=== PATIENT | male | born 1955 | race Caucasian/White ===

== ENCOUNTER 2020-11-22 16:38 | Emergency (ER) | payer MEDICAID ==
[~2020-11-22] VITALS: Ht 193 cm; Wt 73.0 kg
[2020-11-22 16:41] VITALS: BP 155/90
== END 2020-11-22 18:08 ==
LOC: ED 18:02
DX: F10.120 Alcohol abuse with intoxication, uncomplicated (principal); Y90.0 Blood alcohol level of less than 20 mg/100 ml
CPT/HCPCS: 99283

== ENCOUNTER 2021-01-03 18:33 | Emergency (ER) | payer MEDICARE, MEDICAID ==
[~2021-01-03] VITALS: Ht 195.6 cm; Wt 81.0 kg
--- NOTE | 2021-01-03 19:04 | NUR ---
SANDIE FROM COUNTS INCLUDE 234 BEDS AT THE [facility] OUTSIDE TEMPORARY HOUSING UNIT OFF [address] STAFF WOULD LET HIM IN BECAUSE HE COULD NOT SAFELY WALK (ASSUMED ETOH INTOXICATION) VSS. A+OX 4 BUT OBVIOUSLY INTOXICATED
[2021-01-03] MEDS ORDERED: LORazepam 2 MG/ML, 1ML ONE ×2 (19:15→20:13)
--- NOTE | 2021-01-03 19:21 | NUR ---
PATIENT TOO UNSTABLE TO WALK ERP TO BEDSIDE PATIENT QUITE MOBILE AND RN WORRIED ABOUT FALL. MEDICATED WITH IM ATIVAN. WILL PUSH PO FLUIDS. THEN MTF
[2021-01-03] MEDS ORDERED: LORazepam 2 MG/ML, 1ML IM ONE (19:30)
--- NOTE | 2021-01-03 19:45 | NUR ---
with reassessment patient now calm/pleasant. Provided with food water and encouraged to take a nap
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
[2021-01-03] MEDS ORDERED: LORazepam 2 MG/ML, 1ML IM PRN (20:30)
--- NOTE | 2021-01-03 20:45 | NUR ---
WITH REASESSMENT PATIENT NOW CALM/RESTING VSS/WILL CONTINUE TO CLOSELY MONITOR
--- NOTE | 2021-01-03 21:08 | NUR ---
REPORT TO CHLOÉ WILSON
--- NOTE | 2021-01-03 21:09 | NUR ---
RECEIVED BS REPORT FROM KATIE BROOKS TO ASSUME CARE OF PT. AT THIS TIME. ALL SAFETY MEASURES OBSERVED.
--- NOTE | 2021-01-03 21:30 | NUR ---
LATE ENTRY: RESTRAINTS REMOVED AT THIS TIME. PT. RESTING ON GURNEY WITH EYES CLOSED AND NO DISTRESS NOTED. PULSE OX IN PLACE.
--- NOTE | 2021-01-03 22:30 | NUR ---
PT. CONTINUES TO REST ON GURNEY WITH EYES CLOSED. NO DISTRESS NOTED. PULSE OF IN PLACE. RESPIRATIONS VISIBLE AND NON-LABORED. ALL SAFETY MEASURES OBSERVED.
--- NOTE | 2021-01-04 00:06 | NUR ---
PT. CONTINUES RESTING ON GURNEY WITH EYES CLOSED. NO DISTRESS NOTED. REPIRATIONS VISIBLE AND NON-LABORED. PT. REMAINS ON 2L O2 VIA NC TO MAINTAIN O2 SAT >90%; PT. DROPS TO MID 80'S ON RA. PT. VERY DROWSY. ALL SAFETY MEASURES MAINTAINED.
--- NOTE | 2021-01-04 01:02 | NUR ---
BEDSIDE REPORT FROM CHLOÉ WILSON, PT CARE TRANSFERRED AT THIS TIME. PT CONTINUES TO REST WITH EYES CLOSED, LAYING SUPINE, EVEN AND UNLABORED RESPIRATIONS NOTED. VSS. PT NAD. RAILS ENGAGED, BED IN LOWEST, CALL LIGHT ON LAP, WCTM.
--- NOTE | 2021-01-04 02:09 | NUR ---
Break RN: patient resting in [facility]. REspirations even and unlabored. Patient not ready for d/c at this time.
--- NOTE | 2021-01-04 03:09 | NUR ---
PT UP STUMBLING OUT OF ROOM, REDIRECTED TO ROOM, PROVIDED SNACKS AND DRINKS FOR COMFORT, NAD, WCTM.
--- NOTE | 2021-01-04 03:48 | NUR ---
pt continually getting out of bed despite reorientation, provision of snacks and activities for entertaining, RN talking to patient and moving pt room closer to nursing station. pt unsteady on feet and unsafe to dc at this time. restraints applied for pt safety. wctm.
--- NOTE | 2021-01-04 04:33 | NUR ---
Patient is resting comfortably in bed. Bed in lowest, rails engaged, call light on lap. Vital Signs within normal limits. WCTM. waiting for pt to be able to safely ambulate for dc.
--- NOTE | 2021-01-04 04:56 | NUR ---
PT RESTRAINTS REMOVED PT APPEARS MORE SOBER AT THIS TIME. PT ABLE TO SIT UP AND STAND SMOOTHLY AND EASILY WITHOUT STUMBLING OR SWAYING. UPON DISCHARGE PT VERBALIZES UNDERSTANDING BUT STATES "IM GOING STRAIGHT TO THE BAR", RN EDUCATED PT ON ALCOHOL CESSATION BUT PT DID NOT SEEM INTERESTED IN LEARNING STATING "LOOK HERE, ISAIAS GOT SOME MONEY FOR ANOTHER DRINK NOW". PT SKIPPING OUT OF ROOM AND UP TO CHARGE DESK WHERE HE BEGAN DANCING, PT THANKED STAFF FOR THEIR HELP AND WALKED OUT OF ER WITH A SMOOTH AND STEADY GAIT. NAD, NO PERSONAL BELONGINGS LEFT IN ROOM AFTER DC.
[2021-01-04 05:00] VITALS: BP 109/79
== END 2021-01-04 05:01 | disposition home or self-care (01) ==
LOC: ED 20:00
DX: F10.220 Alcohol dependence with intoxication, uncomplicated (principal); F17.210 Nicotine dependence, cigarettes, uncomplicated; Z72.9 Problem related to lifestyle, unspecified; Y90.0 Blood alcohol level of less than 20 mg/100 ml
CPT/HCPCS: 96372; 99285; 99406; J2060

== ENCOUNTER 2021-01-07 16:12 | Emergency (ER) | payer MEDICAID ==
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
[2021-01-07 17:00] LABS: BASOPHILS % (AUTO) 1 % (0-1); EOSINOPHILS % (AUTO) 0 % (1-7); LYMPHOCYTES % (AUTO) 33 % (22-44); MEAN CORPUSCULAR HEMOGLOBIN 32.8 pg (27.5-34.5); MEAN CORPUSCULAR HGB CONC 33.9 g/dL (33.2-36.2); MEAN PLATELET VOLUME 7.7 fL (7.4-10.4); MONOCYTES % (AUTO) 12 % (2-9); NEUTROPHILS % (AUTO) 54 % (42-75); PLATELET COUNT 198 x10^3/uL (130-400); RED BLOOD COUNT 4.35 x10^6/uL (4.38-5.82); RED CELL DISTRIBUTION WIDTH 14.7 % (9.4-14.8)
--- NOTE | 2021-01-07 17:06 | NUR ---
PATIENT TO CT SCAN WITH SECURITY GUARDS.
[2021-01-07 17:11] LABS: ALANINE AMINOTRANSFERASE 41 U/L (12-78); ALBUMIN 3.9 g/dL (3.4-5.0); ANION GAP 4 mmol/L (5-15); CALCIUM 8.9 mg/dL (8.5-10.1); CHLORIDE 111 mmol/L (98-107)
[2021-01-07 17:15] LABS: ALKALINE PHOSPHATASE 95 U/L (45-117); BILIRUBIN,TOTAL 0.7 mg/dL (0.2-1.0); TOTAL PROTEIN 7.4 g/dL (6.4-8.2)
--- NOTE | 2021-01-07 17:44 | NUR ---
[facility] SC[facility] IN 4-POINT RESTRAINTS, WAITING FOR CT SCAN.
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
--- NOTE | 2021-01-07 18:15 | NUR ---
ERMD AT BEDSIDE TO DISCUSS POC.
--- NOTE | 2021-01-07 18:52 | NUR ---
RECEIVED BS REPORT FROM KATIE KAUR TO ASSUME CARE OF PT.
[2021-01-07 19:15] VITALS: BP 112/72
--- NOTE | 2021-01-07 19:15 | NUR ---
CAB CALLED FOR PT. FOR SAFE D/C HOME. PT. VERBALLY THREATING TO STAFF. SECURITY TO ESCORT PT. TO CAB TO ENSURE STAFF SAFETY.
== END 2021-01-07 19:28 | disposition home or self-care (01) ==
LOC: ED 18:29
DX: F10.220 Alcohol dependence with intoxication, uncomplicated (principal); R51.9 Headache, unspecified; M54.2 Cervicalgia; Y90.0 Blood alcohol level of less than 20 mg/100 ml
CPT/HCPCS: 36415; 70450; 72125; 80053; 80320; 85025; 99285; G0480

== ENCOUNTER 2021-02-07 14:32 | Emergency (ER) | payer MEDICAID ==
[~2021-02-07] VITALS: Ht 193 cm; Wt 75.0 kg
[2021-02-07 14:32] VITALS: BP 131/87
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
[2021-02-07] MEDS ORDERED: THIAMINE 100 MG/ML, 2ML IM ONE (15:00)
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
--- NOTE | 2021-02-07 15:17 | NUR ---
ATTEMPTED TO PLACE VS MONITORS & C-COLLAR WHEN PT FELL ASLEEP, PT BECAME VERY AGITATED UPON AWAKENING & REFUSED C-COLLAR- DR CONTRERAS AWARE.
--- NOTE | 2021-02-07 16:00 | NUR ---
PT TO CT VIA GURNEY & RESTRAINED- ACCOMPANIED BY SECURITY, PT OCCAS YELLING IN EUNICE, NAD, NO NEEDS A THIS TIME.
--- NOTE | 2021-02-07 16:20 | NUR ---
Pamela esparza in [facility] - 02/07/21 at 1724 by YASH PT RETURNED FROM CT.
--- NOTE | 2021-02-07 16:30 | NUR ---
PT RETURNED FROM CT, YELLING IN HALLWAY WHILE RETURNING TO ROOM, PT REMAINS UPRIGHT & RESTRAINED, NAD, SITTER IN VIEW.
--- NOTE | 2021-02-07 16:30 | NUR ---
MULT ATTEMPTS TO ADMIN THIAMINE INJ WHEN AWAKED- PT REFUSED ALL ATTEMPTS WHILE YELLING, SPITTING & PULLING IN RESTAINTS.
--- NOTE | 2021-02-07 17:00 | NUR ---
PT SLEEPING ON GURNEY, AWAKENS OCCAS TO YELL & PULL ON RESTRAINTS THEN FALLS BACK TO SLEEP, NAD, NO NEEDS AT THIS TIME, SITTER IN VIEW.
--- NOTE | 2021-02-07 18:02 | NUR ---
PT CONTINUES TO DOZE OFF BUT OCCAS AWAKENS TO YELL & PULL ON RESTRAINTS THEN FALLS BACK TO SLEEP, NAD, NO NEEDS AT THIS TIME, SITTER IN VIEW.
--- NOTE | 2021-02-07 19:05 | NUR ---
REPORT TO BEBA WILSON
--- NOTE | 2021-02-07 19:10 | NUR ---
PT LAYING IN BED, PT CALLED THIS RN OVER TO HIM AND ASKED TO GET TAKEN OUT OF RESTRAINTS, PT A/OX3, SECURITY CALLED TO REMOVE RESTRAINTS, PT WAS COOPERATIVE AT THE TIME RESTRAINTS TAKEN OFF, PT ABLE TO AMBULATE ON HIS OWN, PT ACTUALLY JUMPED OUT OF BED AND STARTED TO DANCE BECAUSE PT STATED HE WAS HAPPY TO GET OUT OF THE RESTRAINTS, PT AMBULATED TO THE BATHROOM AND UP AND DOWN THE FISHER, PTS GAIT WAS STEADY AND PT REPORTED NO N/V OR DIZZINESS. MD STATED IF PT CAN WALK THEN HE CAN GO, PT GIVEN BUS PASS TO HELP HIM GET HOME
== END 2021-02-07 19:22 | disposition home or self-care (01) ==
LOC: EDBD → MERGE 14:32 → ED 15:00
DX: S00.81XA Abrasion of other part of head, initial encounter (principal); S09.90XA Unspecified injury of head, initial encounter; F10.120 Alcohol abuse with intoxication, uncomplicated; M54.2 Cervicalgia; Y90.0 Blood alcohol level of less than 20 mg/100 ml; F17.200 Nicotine dependence, unspecified, uncomplicated; X58.XXXA Exposure to other specified factors, initial encounter; Y93.89 Activity, other specified; Y92.89 Other specified places as the place of occurrence of the external cause; Y99.8 Other external cause status
CPT/HCPCS: 70450; 72125; 99285

== ENCOUNTER 2021-03-22 19:30 | Emergency (ER) | payer MEDICARE, MEDICAID ==
[~2021-03-22] VITALS: Ht 190.5 cm; Wt 79.5 kg
[2021-03-22 19:58] VITALS: BP 133/84
== END 2021-03-22 20:12 | disposition home or self-care (01) ==
LOC: ED 20:08
DX: F10.229 Alcohol dependence with intoxication, unspecified (principal); Y90.0 Blood alcohol level of less than 20 mg/100 ml; F17.210 Nicotine dependence, cigarettes, uncomplicated